=== PATIENT | male | born 1945 | race Caucasian/White ===

== ENCOUNTER 2018-08-16 16:42 | Observation (INO) ==
--- NOTE | 2018-08-16 17:28 | XR ---
EXAM DATE: 08/16/2018 5:26 PM EST AGE/SEX: 72 years / Male INDICATIONS: Shortness of breath and chest pain. CLINICAL DATA: This is the patient's initial encounter. Patient reports that signs and symptoms have been present for 1 day and indicates a pain score of 5/10. MEDICAL/SURGICAL HISTORY: Asthma. Hypertension. AFIB. . Hernia repair. Ablation of AFIB. COMPARISON: No prior exams available for comparison. FINDINGS: A single AP view of the chest demonstrates the lungs to be symmetrically aerated without evidence of mass, infiltrate or effusion. The cardiomediastinal contours are unremarkable. Osseous structures a re intact. CONCLUSION: No evidence of acute cardiopulmonary process. Electronically signed by: Glen Astudillo MD 08/16/2018 5:27 PM EST
[2018-08-16 17:31] LABS: Baso # (Auto) 0.1 th/mm3 (0.0-0.2); Baso % (Auto) 0.5 % (0.0-2.0); Eos # (Auto) 0.1 th/mm3 (0.0-0.4); Eos % (Auto) 1.1 % (0.0-4.0); Hematocrit 46.1 % (39.0-51.0); Hemoglobin 16.5 gm/dL (13.0-17.0); Lymph # (Auto) 3.2 th/mm3 (1.0-4.8); Lymph % (Auto) 30.7 % (9.0-44.0); Mean Corpuscular HGB Conc 35.7 % (32.0-36.0); Mean Corpuscular Hemoglobin 32.4 pg (27.0-34.0); Mean Corpuscular Volume 90.8 fL (80.0-100.0); Mean Platelet Volume 9.6 fL (7.0-11.0); Mono # (Auto) 0.8 th/mm3 (0.0-0.9); Mono % (Auto) 7.8 % (0.0-8.0); Neut # (Auto) 6.1 th/mm3 (1.8-7.7); Neut % (Auto) 59.9 % (16.0-70.0); Platelet Count 180 th/mm3 (150-450); Red Blood Count 5.07 mil/mm3 (4.50-5.90); Red Cell Distribution Width 12.6 % (11.6-17.2); White Blood Count 10.3 th/mm3 (4.0-11.0)
[2018-08-16] MEDS ORDERED: dilTIAZem Inj 125 MG in Sodium Chlor 0.9% Inj 100 ML IV.CONT PRN (17:33)
[2018-08-16 17:47] LABS: Activated Partial Thrombo Time 25.6 sec (23.4-31.7); INR 1.1 Ratio; Prothrombin Time 10.7 sec (9.8-11.6)
[2018-08-16 17:51] LABS: D-Dimer 0.4 mg/L FEU (0.00-0.50)
--- NOTE | 2018-08-16 17:58 | ED ---
HPI General Chief Complaint: Arrhythmia / Palpitations Stated Complaint: Cardiac complaint Time Seen by Provider: 08/16/18 16:44 Source: patient Mode of arrival: EMS Limitations: no limitations History of Present Illness HPI narrative: The patient is a 72-year-old male who presents to the emergency department via EMS for elevated heart rate and palpitations. The patient states he was eating ice cream earlier tonight when he developed "cramping "in the chest wall that radiated up to the neck. The patient thought he might be having a reaction secondary to the eating the ice cream with his esophagus, however, felt his heart rate was elevated and had his , who is a nurse, check his heart rate. The patient's heart rate was elevated in the 140s and 150s, therefore, EMS was called. The patient states he had 2 episodes of the chest discomfort, both lasting 1 minute, and self resolving. Upon arrival the patient denies any chest pain, shortness of breath, nausea, vomiting, diaphoresis, or lightheadedness. The patient states he has a history of a tachyarrhythmia in the past and underwent a cardiac ablation in [place] which was successful after the second attempt. He is not currently on any AV mary ann blockers or anticoagulation. The patient did drive down from [place] 1 week ago, [address], but denies any history of pulmonary embolism or DVT. He denies any known history of congestive heart failure and currently takes no medications. The patient took 2 full size aspirin prior to arrival. MD complaint: Reports rapid heart beat and irregular heart beat Onset (ago): minute(s) Duration: constant Severity: moderate Context: Reports occurred during rest Arrhythmia history: Reports SVT and history of ablation Associated symptoms: Reports chest pain Related Data Home Medications Medication Instructions Recorded Confirmed No Known Home Medications 08/16/18 08/16/18 Allergies Allergy/AdvReac Type Severity Reaction Status Date / Time Penicillins Allergy Hives Verified 08/16/18 16:57 Review of Systems ROS: all other systems reviewed are negative COUNT INCLUDES THE [facility] Medical History Medical History Afib (Acute) Surgical History Surgical History H/O hernia repair (Acute) S/P ablation of atrial fibrillation (Acute) Social History Social History Substance History: No History of Abuse Smoking Status: Never smoker How Often Do You Have a Drink Containing Alcohol: Monthly or less Recent Travel in [facility] within the Last 8 Weeks: No Recent Out of Country Travel within the Last 8 Weeks: No Immunization History Tetanus Immunization: <5 Years Exam Narrative Exam Narrative: GENERAL: Awake, alert, pleasant 72-year-old male who appears his stated age and is in no acute respiratory distress. SKIN: Focused skin assessment warm/dry. HEAD: Atraumatic. Normocephalic. EYES: Pupils equal and round. No scleral icterus. No injection or drainage. ENT: No nasal bleeding or discharge. Mucous membranes pink and moist. NECK: Trachea midline. No JVD. CARDIOVASCULAR: Irregularly irregular with a heart rate in the 140s. RESPIRATORY: No accessory muscle use. Clear to auscultation. Breath sounds equal bilaterally. GASTROINTESTINAL: Abdomen soft, non-tender, nondistended. Hepatic and splenic margins not palpable. MUSCULOSKELETAL: No obvious deformities. No clubbing. No cyanosis. Mild chronic venous stasis changes of the lower extremities with superficial varicosities noted. NEUROLOGICAL: Awake and alert. No obvious cranial nerve deficits. Motor grossly within normal limits. Normal speech. Nonfocal. Oriented x4. PSYCHIATRIC: Appropriate mood and affect; insight and judgment normal. Course Initial Documented Vital Signs Temperature 98.3 F 08/16/18 16:53 Pulse Rate 160 H 08/16/18 16:53 Respiratory Rate 16 08/16/18 16:53 Blood Pressure 158/102 H 08/16/18 16:53 Pulse Oximetry 98 08/16/18 16:53 Last Documented Vital Signs Temperature 98.3 F 08/16/18 16:53 Pulse Rate 141 H 08/16/18 17:06 Respiratory Rate 20 08/16/18 17:06 Blood Pressure 133/82 08/16/18 17:06 Pulse Oximetry 96 08/16/18 17:06 Critical Care Time Critical Care Time: Yes Total Critical Care Time: 35 Attestation: Aggregate critical care time was 35 minutes. Time to perform other separately billable procedures was not included in the critical care time. My time did not include minutes spent treating any other patients simultaneously or on activities that did not directly contribute to the patient's treatment. The services I provided to this patient were to treat and/or prevent clinically significant deterioration that could result in: Pulmonary edema, flash pulmonary edema, congestive heart failure, cardia myopathy, arrhythmia, electrolyte and normality, . I provided critical care services requiring my management, as noted below: Chart data review, documentation time, medication orders and management, vital sign assessments/reviewing monitor data, ordering and reviewing lab tests, ordering and interpreting/reviewing x-rays and diagnostic studies, care of the patient and discussion of the patient with the admitting physicians. Medical Decision Making MDM Narrative Medical decision making narrative: IV was established, labs are drawn and sent, and the patient was placed on cardiac telemetry monitoring and continuous pulse oximetry monitoring. EKG was ordered and interpreted. Patient's initial EKG appeared to be atrial flutter with a 2-1 block at a rate of 155. The patient was administered Cardizem 20 mg intravenously which brought his rate down into the 110-115 range. Repeat EKG revealed atrial fibrillation with RVR. The patient recently traveled from [place] to the local area, therefore, d-dimer was sent to lab. D-dimer was 0.4, therefore, no indication for CT pulmonary angiogram. TSH was sent to lab. The patient was then noted to be in a slower rate with a heart rate in the 50s and 60s, repeat EKG revealed sinus rhythm with sinus arrhythmia, the patient converted with 1 dose of Cardizem. The patient will need an echocardiogram as he does have proximal atrial fibrillation to rule out intra-atrial thrombus and telemetry monitoring overnight to evaluate if the atrial fibrillation returns and he will be needing an AV mary ann tereza. The on-call medical service was paged for 23-hour observation for echocardiogram and telemetry monitoring overnight. The patient most likely will need to be placed on aspirin and/or another anticoagulant and possibly an AV mary ann tereza for his proximal atrial fibrillation if his heart rate will allow. Medical Screen Exam Complete: Yes Emergency Medical Condition: Yes Differential Diagnosis Differential Diagnosis: Differential diagnosis includes atrial fibrillation with RVR, atrial flutter, sinus arrhythmia, SVT, electrolyte abnormality, hyperthyroidism, pulmonary embolism, hypokalemia, hyperkalemia, cardia myopathy , congestive heart failure. Lab Data Result diagrams: 08/16/18 17:16 08/16/18 17:16 Lab Results 08/16/18 08/16/18 08/16/18 Range/Units 17:16 17:16 17:16 WBC 10.3 (4.0-11.0) th/mm3 RBC 5.07 (4.50-5.90) mil/mm3 Hgb 16.5 (13.0-17.0) gm/dL Hct 46.1 (39.0-51.0) % MCV 90.8 (80.0-100.0) fL MCH 32.4 (27.0-34.0) pg MCHC 35.7 (32.0-36.0) % RDW 12.6 (11.6-17.2) % Plt Count 180 (150-450) th/mm3 MPV 9.6 (7.0-11.0) fL Neut % (Auto) 59.9 (16.0-70.0) % Lymph % (Auto) 30.7 (9.0-44.0) % [place] % (Auto) 7.8 (0.0-8.0) % Eos % (Auto) 1.1 (0.0-4.0) % Baso % (Auto) 0.5 (0.0-2.0) % Neut # (Auto) 6.1 (1.8-7.7) th/mm3 Lymph # (Auto) 3.2 (1.0-4.8) th/mm3 [place] # (Auto) 0.8 (0.0-0.9) th/mm3 Eos # (Auto) 0.1 (0.0-0.4) th/mm3 Baso # (Auto) 0.1 (0.0-0.2) th/mm3 WBC Differential . Differential Comment Auto diff final PT 10.7 (9.8-11.6) sec INR 1.1 Ratio APTT 25.6 (23.4-31.7) sec D-Dimer Quant (PE/DVT) 0.40 (0.00-0.50) mg/L FEU Sodium 140 (136-145) meq/L Potassium 4.0 (3.5-5.1) meq/L Chloride 109 H (98-107) meq/L Carbon Dioxide 23.2 (21.0-32.0) meq/L Anion Gap 8 (5-15) meq/L BUN 22 H (7-18) mg/dL Creatinine 1.02 (0.60-1.30) mg/dL Estimated GFR 72 L (>89) mL/min Random Glucose 131 H (74-106) mg/dL Calcium 8.1 L (8.5-10.1) mg/dL Magnesium 1.9 (1.5-2.5) mg/dL Total Bilirubin 0.4 (0.2-1.0) mg/dL AST 40 H (15-37) U/L ALT 36 (12-78) U/L Alkaline Phosphatase 55 (45-117) U/L Total Creatine Kinase 519 H (39-308) U/L CK-MB (CK-2) 12.0 H (0.5-3.6) ng/mL CK-MB (CK-2) % 2.3 (0.0-4.0) % Troponin I Less than 0.02 L (0.02-0.05) ng/mL Total Protein 7.6 (6.4-8.2) g/dL Albumin 3.7 (3.4-5.0) g/dL TSH 2.180 (0.358-3.740) uIU/mL Imaging Data Attestation: I personally reviewed and interpreted this imaging study as follows : Radiologist's impression: Chest X-Ray 08/16/18 17:08 CONCLUSION: No evidence of acute cardiopulmonary process. ECG Data EKG Prior to Arrival: No Attestation: I personally reviewed and interpreted this ECG as follows: Interpretation: EKG #1 reveals a atrial flutter with a 2-1 block and a rate of 155. Nonspecific ST depression, could be rate related. Inverted T waves noted in lead II, III, and aVF. EKG #2 reveals atrial fibrillation with RVR, rate 112 EKG #3 reveals sinus rhythm with sinus arrhythmia. Discharge Plan Discharge Disposition Patient Disposition: 30 Still Patient Discharge Condition Condition: Stable Discharge Details Diagnosis: Atrial flutter, paroxysmal Physicians Team ED Provider: Tez Townsend Primary Care Provider: UNKNOWN, Rxs /Orders / Referrals /Forms Prescriptions: No Action No Known Home Medications RF: 0 Status ED Status: Pending Admission
[2018-08-16 18:05] LABS: Albumin 3.7 g/dL (3.4-5.0); Anion Gap 8 meq/L (5-15); Aspartate Aminotransferase 40 U/L (15-37); Blood Urea Nitrogen 22 mg/dL (7-18); Calcium 8.1 mg/dL (8.5-10.1); Carbon Dioxide 23.2 meq/L (21.0-32.0); Chloride 109 meq/L (98-107); Glomerular Filtration Rate 72 mL/min (>89); Glucose,Random 131 mg/dL (74-106); Magnesium 1.9 mg/dL (1.5-2.5); Sodium 140 meq/L (136-145)
[2018-08-16 18:16] LABS: Alanine Aminotransferase 36 U/L (12-78); Alkaline Phosphatase 55 U/L (45-117); Creatine Kinase 519 U/L (39-308); Total Protein 7.6 g/dL (6.4-8.2)
[2018-08-16 18:36] LABS: CKMB Percent 2.3 % (0.0-4.0)
[2018-08-16] MEDS ORDERED: Bisacodyl 10 MG Supp RECTAL PRN (18:40)
[2018-08-16] MEDS ORDERED: Acetaminophen 325 MG Tablet PO PRN (18:40)
--- NOTE | 2018-08-16 18:45 | P.HP ---
History of Present Illness Primary Care Physician: UNKNOWN Chief Complaint: Arrhythmia / Palpitations History of Present Illness: This is a pleasant 72 y/o male who was brought in to Emergency Room via EMS for elevated heart rate and palpitations. The patient states he was eating ice cream earlier tonight when he developed "cramping "in the chest wall that radiated up to the neck. The patient thought he might be having a reaction secondary to the eating the ice cream with his esophagus, however, felt his heart rate was elevated and had his , who is a nurse, check his heart rate. The patient's heart rate was elevated in the 140s and 150s, therefore, EMS was called. The patient states he had 2 episodes of the chest discomfort, both lasting 1 minute, and self resolving. Upon arrival the patient denies any chest pain, shortness of breath, nausea, vomiting, diaphoresis, or lightheadedness. The patient states he has a history of a tachyarrhythmia in the past and underwent a cardiac ablation in [place] which was successful after the second attempt. He is not currently on any AV mary ann blockers or anticoagulation. The patient did drive down from [place] 1 week ago, [address], but denies any history of pulmonary embolism or DVT. He denies any known history of congestive heart failure and currently takes no medications. The patient took 2 full size aspirin prior to arrival. MD complaint: Reports rapid heart beat and irregular heart beat, Discussed with patient and his Mrs. Tabitha Davila in the room. Review of Systems All other systems reviewed negative except as stated in HPI PMFSH - History History Provided By: Patient - Medical History Medical History: Medical History (Last Updated 08/16/18 @ 16:53 by Arabella Crespo RN) Afib - Surgical History Surgical History: Surgical History (Last Updated 08/16/18 @ 16:53 by Arabella Crespo RN) H/O hernia repair S/P ablation of atrial fibrillation - Family History Family History: Family History (Last Updated 08/16/18 @ 19:05 by Marcos Platt MD) Father Family history of cancer - Tobacco History Smoking Status: Never smoker - Alcohol History How Often Do You Have a Drink Containing Alcohol: Monthly or less - Substance Use History Substance History: No History of Abuse - Travel History Recent Travel in the [facility] Within the Last 8 Weeks: No Recent Travel Out of the Country Within the Last 8 Weeks: No - Immunization History Tetanus Immunization: <5 Years Medications and Allergies Active Medications: Active Medications Diltiazem HCl 125 mg/ Sodium (Chloride) 125 mls @ 5 mls/hr IV.CONT TITRATE PRN ; Protocol PRN Reason: Per Protocol Sodium Chloride (Ns Flush) 2 ml IV.FLUSH UNSCH PRN PRN Reason: FLUSH AFTER USING IV ACCESS Allergies Allergy/AdvReac Type Severity Reaction Status Date / Time Penicillins Allergy Hives Verified 08/16/18 16:57 Home Medications Medication Instructions Recorded Confirmed Type No Known Home Medications 08/16/18 08/16/18 History Exam Vital signs: Vital Signs 08/16/18 16:53 08/16/18 17:06 Temperature 98.3 F Pulse Rate 160 H 141 H Respiratory Rate 16 20 Blood Pressure 158/102 H 133/82 Pulse Oximetry 98 96 Intake & Output 08/15/18 08/16/18 08/16/18 19:59 06:59 18:59 Weight 104.326 kg Narrative: GENERAL: Awake, alert, Obese patient in no distress. SKIN: Focused skin assessment warm/dry. HEAD: Atraumatic. Normocephalic. EYES: Pupils equal and round. No scleral icterus. No injection or drainage. ENT: No nasal bleeding or discharge. Mucous membranes pink and moist. NECK: Trachea midline. No JVD. CARDIOVASCULAR: Irregularly irregular with a heart rate in the 140s. RESPIRATORY: No accessory muscle use. Clear to auscultation. Breath sounds equal bilaterally. GASTROINTESTINAL: Abdomen soft, non-tender, nondistended. Hepatic and splenic margins not palpable. MUSCULOSKELETAL: No obvious deformities. No clubbing. No cyanosis. Mild chronic venous stasis changes of the lower extremities with superficial varicosities noted. NEUROLOGICAL: Awake and alert. No obvious cranial nerve deficits. Motor grossly within normal limits. Normal speech. Nonfocal. Oriented x4. PSYCHIATRIC: Appropriate mood and affect; insight and judgment normal. Results - Labs CBC & Chem 7: 08/16/18 17:16 08/16/18 17:16 Labs: Laboratory Results - last 24 hr 08/16/18 08/16/18 08/16/18 17:16 17:16 17:16 WBC 10.3 RBC 5.07 Hgb 16.5 Hct 46.1 MCV 90.8 MCH 32.4 MCHC 35.7 RDW 12.6 Plt Count 180 MPV 9.6 Neut % (Auto) 59.9 Lymph % (Auto) 30.7 [place] % (Auto) 7.8 Eos % (Auto) 1.1 Baso % (Auto) 0.5 Neut # (Auto) 6.1 Lymph # (Auto) 3.2 [place] # (Auto) 0.8 Eos # (Auto) 0.1 Baso # (Auto) 0.1 WBC Differential . Differential Comment Auto diff final PT 10.7 INR 1.1 APTT 25.6 D-Dimer Quant (PE/DVT) 0.40 Sodium 140 Potassium 4.0 Chloride 109 H Carbon Dioxide 23.2 Anion Gap 8 BUN 22 H Creatinine 1.02 Estimated GFR 72 L Random Glucose 131 H Calcium 8.1 L Magnesium 1.9 Total Bilirubin 0.4 AST 40 H ALT 36 Alkaline Phosphatase 55 Total Creatine Kinase 519 H Troponin I Less than 0.02 L Total Protein 7.6 Albumin 3.7 TSH 2.180 - Imaging Impressions Chest X-Ray 08/16/18 17:08 CONCLUSION: No evidence of acute cardiopulmonary process. Caprini VTE Risk Assessment Caprini VTE Risk Assessment: Moderate/High Risk (score >= 2) Caprini Risk Assessment Model: Point Value = 1 Point Value = 2 Point Value = 3 Point Value = 5 Age 41-60 Minor surgery BMI > 25 kg/m2 Swollen legs Varicose veins or History of unexplained or recurrent spontaneous Oral contraceptives or hormone replacement Sepsis (< 1 month) Serious lung disease, including pneumonia (< 1 month) Abnormal pulmonary function Acute myocardial infarction Congestive heart failure (< 1 month) History of inflammatory bowel disease Medical patient at bed rest Age 61-74 Arthroscopic surgery Major open surgery (> 45 min) Laparoscopic surgery (> 45 min) Malignancy Confined to bed (> 72 hours) Immobilizing plaster cast Central venous access Age >= 75 History of VTE Family history of VTE Factor V Leiden Prothrombin [id number] Lupus anticoagulant Anticardiolipin antibodies Elevated serum homocysteine Heparin-induced thrombocytopenia Other congenital or acquired thrombophilia Stroke (< 1 month) Elective arthroplasty Hip, pelvis, or leg fracture Acute spinal cord injury (< 1 month) Prophylaxis Regimen: Total Risk Factor Score Risk Level Prophylaxis Regimen 0-1 Low Early ambulation 2 Moderate Order ONE of the following: *Sequential Compression Device (SCD) *Heparin 5000 units SQ BID 3-4 Higher Order ONE of the following medications: *Heparin 5000 units SQ TID *Enoxaparin/Lovenox 40 mg SQ daily (WT < 150 kg, CrCl > 30 mL/min) *Enoxaparin/Lovenox 30 mg SQ daily (WT < 150 kg, CrCl > 10-29 mL/min) *Enoxaparin/Lovenox 30 mg SQ BID (WT < 150 kg, CrCl > 30 mL/min) AND/OR *Sequential Compression Device (SCD) 5 or more Highest Order ONE of the following medications: *Heparin 5000 units SQ TID (Preferred with Epidurals) *Enoxaparin/Lovenox 40 mg SQ daily (WT < 150 kg, CrCl > 30 mL/min) *Enoxaparin/Lovenox 30 mg SQ daily (WT < 150 kg, CrCl > 10-29 mL/min) *Enoxaparin/Lovenox 30 mg SQ BID (WT < 150 kg, CrCl > 30 mL/min) AND *Sequential Compression Device (SCD) Assessment and Plan - Plan 1. [place] Fibrillation/Flutter with RVR, Started on Telemetry monitoring, continuous pulse oximetry monitoring. EKG atrial flutter with a 2-1 block at a rate of 155. The patient was administered Cardizem 20 mg IV which brought his rate down into the 110-115 range. Repeat EKG revealed atrial fibrillation with RVR. The patient recently traveled from [place] to the local area, therefore, d- dimer was sent to lab. D-dimer was 0.4, therefore, no indication for CT pulmonary angiogram. asked for TSH, repeat EKG revealed sinus rhythm with sinus arrhythmia, the patient converted with 1 dose of Cardizem. asked for Echocardiogram, CHADS2 VASC2 is 1 he may continue Aspirin or oral anticoagulation will leave this decision to physician office specialist, continue Cardiac enzymes, following Echocardiogram, start low dose Metoprolol. 2. [place] on CPAP asked for RT for management 3. Obesity strongly recommended diet and exercise. DVT prophylaxis with Lovenox. Code Status: Full code. Discussed Condition With: Tez Townsend Discharge Planning: Expected in am tomorrow.
[2018-08-16] MEDS ORDERED: Enoxaparin Inj 40 MG/0.4 ML Syringe SQ SCH (20:00)
[2018-08-16 20:16] LABS: Chol/HDL Ratio 5.18 Ratio; HDL Cholesterol 29.1 mg/dL (40.0-60.0)
[2018-08-16 20:24] LABS: Troponin I 0.16 ng/mL (0.02-0.05)
[2018-08-16 20:36] LABS: CKMB Percent 2.6 % (0.0-4.0); Creatine Kinase MB 11.2 ng/mL (0.5-3.6)
[2018-08-16] MEDS: Sod Chloride 0.9% Inj 1,000 ML IV.CONT SCH (20:42)
[2018-08-16] MEDS: Metoprolol Tartrate 25 MG Tablet PO SCH (20:43)
[2018-08-17 00:17] LABS: Troponin I 0.31 ng/mL (0.02-0.05)
[2018-08-17 00:29] LABS: CKMB Percent 2.9 % (0.0-4.0); Creatine Kinase MB 9.8 ng/mL (0.5-3.6)
[2018-08-17] MEDS: Sod Chloride 0.9% Inj 1,000 ML IV.CONT SCH (04:17)
[2018-08-17 04:35] LABS: Baso # (Auto) 0.1 th/mm3 (0.0-0.2); Baso % (Auto) 0.8 % (0.0-2.0); Eos # (Auto) 0.1 th/mm3 (0.0-0.4); Eos % (Auto) 1.9 % (0.0-4.0); Hematocrit 45.2 % (39.0-51.0); Hemoglobin 15.2 gm/dL (13.0-17.0); Lymph % (Auto) 40.3 % (9.0-44.0); Mean Corpuscular HGB Conc 33.6 % (32.0-36.0); Mean Corpuscular Hemoglobin 30.7 pg (27.0-34.0); Mean Corpuscular Volume 91.1 fL (80.0-100.0); Mean Platelet Volume 9.5 fL (7.0-11.0); Mono # (Auto) 0.7 th/mm3 (0.0-0.9); Mono % (Auto) 9.5 % (0.0-8.0); Neut # (Auto) 3.5 th/mm3 (1.8-7.7); Neut % (Auto) 47.5 % (16.0-70.0); Platelet Count 163 th/mm3 (150-450); Red Blood Count 4.96 mil/mm3 (4.50-5.90); Red Cell Distribution Width 12.6 % (11.6-17.2); White Blood Count 7.3 th/mm3 (4.0-11.0)
[2018-08-17 04:56] LABS: Calcium 8.4 mg/dL (8.5-10.1); Carbon Dioxide 26.3 meq/L (21.0-32.0); Potassium 4.1 meq/L (3.5-5.1)
[2018-08-17] MEDS: Metoprolol Tartrate 25 MG Tablet PO SCH ×2 (08:43→14:53)
--- NOTE | 2018-08-17 10:11 | P.PN ---
Subjective Interval history: FOllow up for atrial flutter with RVR, chest pain, elevated troponins. The patient is seen with his at bedside. Patient reports feeling back to normal today. He denies any further episodes of chest pressure. Denies any palpitations or shortness of breath. telemetry monitor shows sinus bradycardia with heart rate in the upper 50s. He denies any dyspnea on exertion and orthopnea. Denies any history of CHF. He states he follows with a licensed psychologist manager in [place]. He had 2 cardiac ablations, most recently 2 years ago. He does not take any other medications. Patient and states that he has had problems with bradycardia and tachycardia in the past, and licensed psychologist manager mentioned eventually needing a pacemaker. Patient denies ever having a nuclear stress test or cardiac catheterization with angiogram. He has no other medical complaints at this time. Physical Exam Vital signs: Vital Signs 08/16/18 16:53 08/16/18 17:06 08/16/18 19:36 Temperature 98.3 F Pulse Rate 160 H 141 H 65 Respiratory Rate 16 20 18 Blood Pressure 158/102 H 133/82 119/73 Pulse Oximetry 98 96 96 08/16/18 20:00 08/17/18 00:00 08/17/18 04:00 Temperature 97.9 F 97.7 F 97.8 F Pulse Rate 56 L 65 52 L Respiratory Rate 18 20 18 Blood Pressure 133/81 105/68 103/74 Pulse Oximetry 96 98 98 08/17/18 06:19 08/17/18 08:00 Temperature 97.8 F Pulse Rate 61 Respiratory Rate 16 Blood Pressure 128/72 Pulse Oximetry 97 97 Intake & Output 08/16/18 08/17/18 08/17/18 18:59 06:59 18:59 Intake Total 1436 / 1436 Balance 1436 / 1436 Weight 104.326 kg 104.326 kg Intake: IV 716 / 716 NS Inj 1,000 ML @ 100 mls/hr IV 716 / 716 .CONT .Q10H CONI Rx#:[id number] Oral 720 / 720 Other: # Voids 3 Date of Last Bowel Movement 08/16/18 # Bowel Movements 1 Weight On Admission 104.326 kg Narrative: GENERAL: Well-nourished, well-developed pleasant elderly male patient in [facility]. SKIN: Warm and dry. No rash. HEENT: Normocephalic. Atraumatic. Pupils equal and round. Mucous membranes pink and moist. NECK: Supple. Trachea midline. CARDIOVASCULAR: Bradycardic rate, regular rhythm. No murmur appreciated. RESPIRATORY: No accessory muscle use. Clear to auscultation. Breath sounds equal bilaterally. GASTROINTESTINAL: Abdomen soft, non-tender, nondistended. Normoactive bowel sounds x4. MUSCULOSKELETAL: No obvious deformities. Extremities without clubbing, cyanosis , or edema. Mild chronic venous stasis changes of the lower extremities with superficial varicosities noted. NEUROLOGICAL: Awake and alert. No obvious cranial nerve deficits. Motor grossly within normal limits. Moving all extremities spontaneously. Normal speech. PSYCHIATRIC: Appropriate mood and affect; insight and judgment normal. Results - Labs CBC & Chem 7: 08/17/18 03:37 08/17/18 03:37 Laboratory Results - last 24 hr 08/16/18 08/16/18 08/16/18 17:16 17:16 17:16 WBC 10.3 RBC 5.07 Hgb 16.5 Hct 46.1 MCV 90.8 MCH 32.4 MCHC 35.7 RDW 12.6 Plt Count 180 MPV 9.6 Neut % (Auto) 59.9 Lymph % (Auto) 30.7 Craig % (Auto) 7.8 Eos % (Auto) 1.1 Baso % (Auto) 0.5 Neut # (Auto) 6.1 Lymph # (Auto) 3.2 Craig # (Auto) 0.8 Eos # (Auto) 0.1 Baso # (Auto) 0.1 WBC Differential . Differential Comment Auto diff final PT 10.7 INR 1.1 APTT 25.6 D-Dimer Quant (PE/DVT) 0.40 Sodium 140 Potassium 4.0 Chloride 109 H Carbon Dioxide 23.2 Anion Gap 8 BUN 22 H Creatinine 1.02 Estimated GFR 72 L Random Glucose 131 H Calcium 8.1 L Magnesium 1.9 Total Bilirubin 0.4 AST 40 H ALT 36 Alkaline Phosphatase 55 Total Creatine Kinase 519 H CK-MB (CK-2) 12.0 H CK-MB (CK-2) % 2.3 Troponin I Less than 0.02 L B-Natriuretic Peptide Total Protein 7.6 Albumin 3.7 Triglycerides Cholesterol LDL Cholesterol, Calc HDL Cholesterol Cholesterol/HDL Ratio TSH 2.180 08/16/18 08/16/18 08/16/18 17:16 19:23 19:23 WBC RBC Hgb Hct MCV MCH MCHC RDW Plt Count MPV Neut % (Auto) Lymph % (Auto) Craig % (Auto) Eos % (Auto) Baso % (Auto) Neut # (Auto) Lymph # (Auto) Craig # (Auto) Eos # (Auto) Baso # (Auto) WBC Differential Differential Comment PT INR APTT D-Dimer Quant (PE/DVT) Sodium Potassium Chloride Carbon Dioxide Anion Gap BUN Creatinine Estimated GFR Random Glucose Calcium Magnesium Total Bilirubin AST ALT Alkaline Phosphatase Total Creatine Kinase 439 H CK-MB (CK-2) 11.2 H CK-MB (CK-2) % 2.6 Troponin I 0.16 H B-Natriuretic Peptide 23 Total Protein Albumin Triglycerides 215 H Cholesterol 151 LDL Cholesterol, Calc 79 HDL Cholesterol 29.1 L Cholesterol/HDL Ratio 5.18 TSH 08/16/18 08/17/18 08/17/18 23:50 03:37 03:37 WBC 7.3 RBC 4.96 Hgb 15.2 Hct 45.2 MCV 91.1 MCH 30.7 MCHC 33.6 RDW 12.6 Plt Count 163 MPV 9.5 Neut % (Auto) 47.5 Lymph % (Auto) 40.3 Craig % (Auto) 9.5 H Eos % (Auto) 1.9 Baso % (Auto) 0.8 Neut # (Auto) 3.5 Lymph # (Auto) 3.0 Craig # (Auto) 0.7 Eos # (Auto) 0.1 Baso # (Auto) 0.1 WBC Differential . Differential Comment Auto diff final PT INR APTT D-Dimer Quant (PE/DVT) Sodium 142 Potassium 4.1 Chloride 109 H Carbon Dioxide 26.3 Anion Gap 7 BUN 19 H Creatinine 0.87 Estimated GFR 87 L Random Glucose 108 H Calcium 8.4 L Magnesium Total Bilirubin AST ALT Alkaline Phosphatase Total Creatine Kinase 335 H CK-MB (CK-2) 9.8 H CK-MB (CK-2) % 2.9 Troponin I 0.31 H B-Natriuretic Peptide Total Protein Albumin Triglycerides Cholesterol LDL Cholesterol, Calc HDL Cholesterol Cholesterol/HDL Ratio TSH - Imaging Impressions Chest X-Ray 08/16/18 17:08 CONCLUSION: No evidence of acute cardiopulmonary process. Assessment and Plan - Plan 72-year-old male with history of tachyarrhythmia status post ablation x2, presents with chest pressure and palpitations. Atrial flutter/fibrillation with RVR: EKG upon arrival showed a flutter with heart rate 155. Given IV Cardizem 20 mg x1 with improvement to the 110s. Repeat EKG showed atrial fibrillation with RVR. -Patient took aspirin 162mg prior to arrival, given additional 162mg -Start on metoprolol 25mg po bid -[id number] score of at least 1, maybe 2 if underlying HTN -Monitor on telemetry -Echocardiogram completed, results pending -Consult cardiology, discussed with Dr. Andrews, appreciate assistance NSTEMI: patient with chest pressure and elevated troponins, possibly secondary to above, need to rule out ischemia -Troponins trended 0.02 --> 0.16 --> 0.31 -given aspirin and BB -chest pain currently resolved -checking Lexiscan per cardiology DVT Prophylaxis: Lovenox sq Discharge Planning: Pending results of Lexiscan and cardiology clearance. 1500hrs: Lexiscan resulted, shows small area of reversibility along the septum at the base, normal EF 70%. Echocardiogram resulted with EF 45-50%. Dr. Andrews informed of Lexiscan results and plans to see the patient soon. 1530hrs: Patient seen by Dr. Andrews, cleared for discharge, recommends metoprolol 12.5mg po bid and xarelto 20mg po qd. Will discharge home. Discharge patient to home Condition on discharge: Stable Heart Healthy Diet as tolerated Ad Stefanie activity Rx written: metoprolol 12.5mg po bid, xarelto 20mg po qd Follow-up with primary care physician and cardiology
[2018-08-17 12:28] VITALS: BP 122/64; PULSE 59; RESP 18; TEMP 98.3; O2SAT 98
[2018-08-17] MEDS ORDERED: Regadenoson Inj 0.4 MG/5 ML Syringe IV.PUSH ONE (13:08)
--- NOTE | 2018-08-17 14:15 | NM ---
EXAM DATE: 08/17/2018 1:59 PM EST AGE/SEX: 72 years / Male INDICATIONS:Atrial Fibrillation. . Substernal chest pain radiating to neck. CLINICAL DATA: This is the patient's initial encounter. Patient reports that signs and symptoms have been present for 1 day and indicates a pain score of 5/10. MEDICAL/SURGICAL HISTORY: None. . Hernia repair and cardiac ablation. COMPARISON: No prior exams available for comparison. DOSE: 10.0 mCi Tc 99m Myoview at rest 26.3 mCi [id number] at stress 0.4 mg Lexiscan STRESS SYMPTOMS: Shortness of breath. EJECTION FRACTION: 70 % TECHNIQUE: The patient underwent pharmacologic stress with infusion of prescribed dose. Continuous ECG tracing was monitored during stress. Gated SPECT imaging was performed after stress and conventi onal SPECT imaging was performed at rest. The examination was performed on a SPECT/CT scanner, both attenuation and non-corrected datasets were reviewed. FINDINGS: Distribution: The maximum perfused segment at stress is in the septal wall. Perfusion Study: No significant reversible perfusion defects. Small mismatched defect along the sep sarina towards the base. Gated Study: There are intact wall motion and wall thickening without hypokinetic or dyskinetic segm ents. The ejection fraction is calculated at 70%. RISK CATEGORY: Low (<1% Annual Motality Rate) CONCLUSION: 1. Small area of reversibility along the septum at the base. 2. Normal ejection fraction. Electronically signed by: Phil Del Rosario MD 08/17/2018 2:14 PM EST
--- NOTE | 2018-08-17 14:38 | ECHRPT ---
Indication: afib and flutter CONCLUSIONS Mild concentric left ventricular hypertrophy. The left ventricular systolic function is mildly reduced with an estimated ejection fraction in the range of 45- 50%. Aortic valve sclerosis is present. The estimated pulmonary arterial pressure is 24 mmHg. There is trace tricuspid valve regurgitation. BP: / HR: Rhythm: MEASUREMENTS (Male / Female) Normal Values Technical Quality: 2D ECHO LV Diastolic Diameter PLAX 4.6 cm 4.2 - 5.9 / 3.9 - 5.3 cm LV Systolic Diameter PLAX 3.5 cm IVS Diastolic Thickness 1.3 cm 0.6 - 1.0 / 0.6 - 0.9 cm LVPW Diastolic Thickness 1.1 cm 0.6 - 1.0 / 0.6 - 0.9 cm LV Relative Wall Thickness 0.5 RV Internal Dim ED PLAX 3.2 cm LVOT Diameter 1.9 cm Aortic Root Diameter 2.9 cm LA Systolic Diameter LX 3.4 cm 3.0 - 4.0 / 2.7 - 3.8 cm LV Ejection Fraction MOD BP 46.9 % >= 55 % LV Ejection Fraction MOD 4C 42.2 % LV Ejection Fraction 4C AL 43.7 % LV Ejection Fraction MOD 2C 52.8 % LV Ejection Fraction 2C AL 55.6 % M-MODE Aortic Root Diameter MM 1.1 cm LA Systolic Diameter MM 4.2 cm LA Ao Ratio MM 3.8 AV Cusp Separation MM 2.2 cm DOPPLER AV Peak Velocity 112.0 cm/s AV Peak Gradient 5.0 mmHg LVOT Peak Velocity 95.8 cm/s LVOT Peak Gradient 3.7 mmHg AV Area Cont Eq pk 2.4 cm Mitral E Point Velocity 81.9 cm/s Mitral A Point Velocity 73.1 cm/s Mitral E to A Ratio 1.1 LV E' Lateral Velocity 3.3 cm/s Mitral E to LV E' Lateral Ratio 24.7 LV E' Septal Velocity 6.0 cm/s Mitral E to LV E' Septal Ratio 13.6 TR Peak Velocity 185.0 cm/s TR Peak Gradient 13.7 mmHg Right Atrial Pressure 10.0 mmHg Pulmonary Artery Systolic Pressu 23.7 mmHg Right Ventricular Systolic Press 23.7 mmHg PV Peak Velocity 71.6 cm/s PV Peak Gradient 2.1 mmHg FINDINGS LEFT VENTRICLE Mild concentric left ventricular hypertrophy. The left ventricular systolic function is mildly reduced with an estimated ejection fraction in the range of 45- 50%. AORTIC VALVE Aortic valve sclerosis is present. TRICUSPID VALVE The estimated pulmonary arterial pressure is 24 mmHg. There is trace tricuspid valve regurgitation. Nabor Gary MD, FACC, [facility] [place] (Electronically Signed) Final Date:17 August 2018 14:37
[2018-08-17 17:33] LABS: Hemoglobin A1c 5.7 % (4.3-6.0)
--- NOTE | 2018-08-17 21:25 | ECG ---
Date Performed: 08/16/2018 Time Performed: 18:01:07 PTAGE: 72 years EKG: Sinus rhythm WITH SINUS ARRHYTHMIA NORMAL ECG PREVIOUS TRACING : 08/16/2018 17.10 Compared to previous tracing, a fib no longer present DOCTOR: Nikos Ortiz Interpretating Date/Time 08/17/2018 21:24:03
--- NOTE | 2018-08-17 21:25 | ECG ---
Date Performed: 08/16/2018 Time Performed: 17:10:33 PTAGE: 72 years EKG: ATRIAL FIBRILLATION WITH RAPID VENTRICULAR RESPONSE ABNORMAL ECG Compared to PREVIOUS TRACING , a flutter no longer present DOCTOR: Nikos Ortiz Interpretating Date/Time 08/17/2018 21:25:15
--- NOTE | 2018-08-17 21:26 | ECG ---
Date Performed: 08/16/2018 Time Performed: 16:54:58 PTAGE: 72 years EKG: ATRIAL FLUTTER WITH RAPID VENTRICULAR RESPONSE NO PREVIOUS TRACING DOCTOR: Nikos Ortiz Interpretating Date/Time 08/17/2018 21:25:37
--- NOTE | 2018-08-18 01:42 | MB ---
cc: Isidro Andrews DO DATE: 08/17/2018 REASON FOR CONSULTATION: Atrial fibrillation with rapid ventricular response. HISTORY OF PRESENT ILLNESS: Clarke Davila is a pleasant 72-year-old male who presented to [facility] Emergency Room due to elevated heart rates with palpitations. The patient is down visiting from [place]. They were eating ice cream earlier tonight when he developed palpitations and cramping in the center of his chest that radiated up to his neck. When discussing this, he felt like it was the palpitations and he could feel it into his neck every time his heart beat. He felt like he was having a reaction secondary to eating ice cream and had his checked his heart rate, noted it was in the 140s-150s. Because of this, he presented to the emergency room. In discussing with the patient and his , it appears that he has had problems with his heart rate before. He was having episodes of heart rates in the 140s and had some type of ablation. During the time when he was having this, he was on metoprolol tartrate 25 mg b.i.d. He was also noted to have low heart rates while on the metoprolol in the 50s, but was asymptomatic. 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 PAST MEDICAL HISTORY: 1. Atrial fibrillation, which is new onset. 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 3. Hypertension. PAST SURGICAL HISTORY: 1. Hernia repair. 2. Listed as ablation for atrial fibrillation, but is most likely fast pathway modification for AVNRT. ALLERGIES: PENICILLIN. MEDICATIONS: Denies. FAMILY HISTORY: Denies premature coronary artery disease or sudden cardiac within the family. SOCIAL HISTORY: Denies tobacco, alcohol or drug abuse. REVIEW OF SYSTEMS: Fourteen systems were reviewed including osteopathic. Pertinent positives and negatives above, otherwise negative. PHYSICAL EXAMINATION: VITAL SIGNS: Temperature 97.8, heart rate 61, blood pressure 128/72, respirations 16, pulse oximetry 97% on room air. GENERAL: The patient appears well, in no acute distress. Alert, awake and oriented x3. HEENT: Extraocular muscles intact. Mucous membranes moist. NECK: Supple. No JVD at 45 degrees. No carotid bruits heard bilaterally. Carotid upstroke is brisk in nature. HEART: Regular rhythm, but mildly bradycardic. No murmurs noted. LUNGS: Clear to auscultation bilaterally. No wheezes, rales or rhonchi. ABDOMEN: Soft, nontender, nondistended. No organomegaly noted. EXTREMITIES: Show no clubbing, cyanosis or edema. Femoral and distal pulses are intact bilaterally. NEUROLOGIC: No focal deficits. SKIN: Warm, dry and intact. OSTEOPATHIC: No kyphoscoliosis, lordosis or paraspinal tender points. LABORATORY DATA: Hemoglobin 15.2, hematocrit 45.2, platelets 163. Potassium 4.1, BUN 19, creatinine 0.87. Troponin 0.31. Electrocardiogram (08/16/2018 at 1654 hours): Atrial flutter with rapid ventricular response. IMPRESSION: 1. New onset atrial fibrillation/atrial flutter with rapid ventricular response. 2. 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 3. Mild hypertension. 4. Elevated troponin. RECOMMENDATIONS: 1. Mr. Davila appears to have presented with atrial flutter/atrial fibrillation with rapid ventricular response. He has since cardioverted back to normal sinus rhythm. 2. We discussed placing him on metoprolol therapy and has since been started on this. Heart rates run anywhere from 50-70 and I believe that he should continue on this, as he is asymptomatic when his heart rates are in the 50s. 3. We also discussed anticoagulation. Overall, I would consider him a CHADS-VASc score of 2 (age, hypertension). Logistically, this is difficult due to him being down on vacation. After discussing twice with him and his , they have decided on starting Xarelto, which I think is a reasonable option given that he has a risk of 2-3% per year of stroke. They will obtain a script for Xarelto and follow up with their equipment engineer upon arrival back in [place] as Xarelto appears to be expensive on their current plan and may need to switch to something along the lines of Coumadin. 4. He did have a minimally elevated troponin and this is most likely due to his rapid ventricular state. We will have him undergo a pharmacologic nuclear stress test to rule out ischemia as well as underlying coronary artery disease as a possible cause for atrial fibrillation. 5. We will check a 2-D echo to look at his overall left ventricular function, cardiac structure and possible valvulopathies. 6. Further recommendations will be made based on the hospital course. Thank you for allowing me to see Clarke Davila. If there are any questions, please do not hesitate to call. Isidro Andrews DO VGP/gris , 12:11 AM , 12:25 AM
== END 2018-08-17 16:25 | disposition home or self-care (01) ==
LOC: NEDA 16:42 → NEPE 16:42 → NEPFCDU 20:14
PROVIDERS: ADMIT Hospitalist; ATTEND Hospitalist